=== PATIENT | female | born 1965 | race Two or more races ===

== ENCOUNTER 2023-02-18 16:31 | Emergency (ER) | payer OTHER ==
[2023-02-18] MEDS ORDERED: NIRMATRELVIR/RITONAVIR PREPACK PO STA (17:26)
--- NOTE | 2023-02-18 17:29 | ED Physician Documentation ---
History of Present Illness - Stated complaint Stated Complaint: C+ - Chief complaint Chief Complaint: General - Additonal information Additional information: 57-year-old female who has a history of of hypertension, diabetes and hypercholesterolemia presents to the emergency department for evaluation of COVID-19 infection. Began having rigors and body aches this morning tested positive via rapid antigen. She reports that she is boosted and vaccinated for COVID-19. Appears well. Sounds congestion but has room air saturations 100%. Normal vitals otherwise Review of Systems Constitutional: reports: Fever, Myalgias, Fatigue Respiratory: reports: Cough GI: reports: Reviewed and negative : reports: Reviewed and negative Skin: reports: Reviewed and negative PD PAST MEDICAL HISTORY - Allergies Allergies/Adverse Reactions: Allergies Allergy/AdvReac Type Severity Reaction Status Date / Time Sulfa (Sulfonamide Allergy Unknown Verified 02/18/23 16:44 Antibiotics) PD ED PE NORMAL - General General: Alert and oriented X 3, No acute distress - HEENT HEENT: PERRL - Neck Neck: Supple, no meningeal sign, No adenopathy - Cardiac Cardiac: RRR, No murmur - Respiratory Respiratory: No respiratory distress, Clear bilaterally - Abdomen Abdomen: Normal bowel sounds, Soft - Neuro Neuro: Alert and oriented X 3 Eye Opening: Spontaneous Motor: Obeys Commands Verbal: Oriented GCS Score: 15 Results - Vitals Vitals: Vital Signs - 24 hr 02/18/23 16:38 Temperature 36.4 C L Heart Rate 100 Respiratory 20 Rate Blood Pressure 149/66 H O2 Saturation 97 Oxygen O2 Source Room air PD Medical Decision Making - ED course Complexity details: d/w patient ED course: 57-year-old female who is both vaccinated and boosted for COVID but has a history of hypertension and diabetes as well as hypercholesteremia presents emergency department requesting treatment for COVID-19 infection. She became symptomatic and tested positive today. We will dispense Paxlovid from the emergency department. She is advised to hold her cholesterol medication while on this. She is scheduled to return to [place] via plane tomorrow. I advised her to maintain quarantine for at least 1 week and not to travel until she has completed this course of Paxlovid. Usual emergent return precautions were discussed. Departure - Departure Disposition: 01 Home, Self Care Clinical Impression: COVID-19 virus infection Condition: Stable Record reviewed to determine appropriate education?: Yes Comments: We are dispensing you with a prepack of the Paxlovid medication to treat your COVID-19 infection. While taking this medication hold your cholesterol drug but you can continue to take your usual medications otherwise. It is important you continue to isolate for at least 1 week. It is not safe to fly for at least the next week. Return to the ER if you have any new or worsening symptoms.
[2023-02-18 17:47] VITALS: BP 119/57
== END 2023-02-18 17:43 | disposition home or self-care (01) ==
LOC: ED 16:31
DX: U07.1 COVID-19 (principal); E78.00 Pure hypercholesterolemia, unspecified
CPT/HCPCS: 99282; 99283; J3490